=== PATIENT | female | born 1990 | race Caucasian/White ===

== ENCOUNTER 2017-11-08 04:43 | Day surgery (SDC) | payer BC ==
[2017-11-07 16:30] VITALS: BMI 34.0
[2017-11-08] MEDS ORDERED: ePHEDrine SULFATE 50 MG/1 ML AMPULE ONE (07:41)
[2017-11-08] MEDS ORDERED: MIDAZOLAM HCL 2 MG/2 ML SINGLE DOSE VIAL ONE (07:42)
[2017-11-08] MEDS ORDERED: PROPOFOL 20 ML ONE (07:42)
[2017-11-08] MEDS ORDERED: ROCURONIUM BROMIDE 50 MG/5 ML VIAL ONE (07:42)
[2017-11-08] MEDS ORDERED: LIDOCAINE 1%/EPI 1:100000 (20 ML MULTI DOSE VIAL) ONE (07:59)
[2017-11-08] MEDS ORDERED: BUPIVACAINE HCL/PF 0.5% (5MG/ML) 10 ML VIAL ONE (07:59)
[2017-11-08] MEDS ORDERED: ceFAZolin SODIUM 1 GM VIAL IVPB ONE (08:24)
[2017-11-08] MEDS ORDERED: LIDOCAINE 1%/EPI 1:100000 (50 ML MULTI DOSE VIAL) INF ONE (08:25)
[2017-11-08] MEDS ORDERED: BUPIVACAINE HCL/PF (5 MG/ML) 30 ML VIAL IJ ONE (08:25)
[2017-11-08] MEDS ORDERED: ONDANSETRON 4 MG/2 ML VIAL IVPUSH PRN (08:41)
[2017-11-08] MEDS ORDERED: oxyCODONE HCL 5 MG TABLET PO PRN ×2 (08:41)
[2017-11-08] MEDS ORDERED: LACTATED RINGERS SOLUTION 1,000 ML IV SCH (08:45)
--- NOTE | 2017-11-08 08:59 | HP ---
Satellite [facility] - Chief Complaint Chief Complaint: left knee pain - Past Medical History Allergies/Adverse Reactions: Allergies Allergy/AdvReac Type Severity Reaction Status Date / Time Sulfa (Sulfonamide Allergy Severe Rash Verified 11/08/17 06:58 Antibiotics) [Sulfa(Sulfonamide Antibiotics)] sulfamethoxazole Allergy Verified 11/08/17 06:58 [From Bactrim] trimethoprim [From Bactrim] Allergy Verified 11/08/17 06:58 ...LMP: 03/10/13 ...LMP Comment: 10/2016 - Current Medications Current Medications: Home Medications Medication Instructions Recorded Clonazepam 0.5 mg PO PRN PRN 11/07/17 Escitalopram Oxalate [Lexapro -] 20 mg PO DAILY 11/07/17 Gabapentin 600 mg PO HS 11/07/17 Ibuprofen [Motrin Ib] 200 mg PO PRN PRN 11/07/17 Satellite Physical Exam - Physical Examination Vital Signs: Vital Signs Period Temp Pulse Resp BP Sys/Valle Pulse Ox Last 24 Hr 98.4 F 85 16 133/82 99 General Appearance: Well Nourished, Well Developed, Alert & Oriented x3 ENT: Clear Lung: Normal air movement Heart: Regular rate & rhythm Extremities: Other (left knee- + swelling, + ttp medially, decr rom, + mcmurrays , nvi MRI + mmt) Neurological: Intact, Alert, Oriented Satellite Impression/Plan - Impression/Plan Impression: left knee internal derangement Operative Procedure: left knee arthroscopy Date to be Performed: 11/08/17
--- NOTE | 2017-11-08 09:00 | OP ---
Operative Note - Note: Operative Date: 11/08/17 ([facility]) Pre-Operative Diagnosis: left knee internal derangement Operation: left knee arthroscopy with MM repair Implants: arthrex meniscal repair kit- 4 Post-Operative Diagnosis: Same as Pre-op Surgeon: Anish Banks Seed [employer] Laboratory Assistant: Jarocho Maldonado Anesthesiologist/MOLD MOVER: Ramin Fitzgerald Anesthesia: General, Local Specimens Removed: shavings Estimated Blood Loss (mls): 5 Operative Report Dictated: Yes
[2017-11-08 10:47] VITALS: TEMP 97.9
[2017-11-08 12:05] VITALS: BP 128/63; PULSE 97
--- NOTE | 2017-11-08 12:18 | OP ---
DATE OF OPERATION: 11/08/2017 PREOPERATIVE DIAGNOSIS: Left medial meniscus tear. POSTOPERATIVE DIAGNOSIS: Left medial meniscus tear. PROCEDURE: Left knee arthroscopy with medial meniscus repair. SURGICAL ATTENDING: Abdelrahman Guzman MD DESK EDITOR: HAY Phan and Anish Banks MD ANESTHESIA: General with LMA. CLOSURE: Three meniscal cinches for the meniscus and 3-0 nylon for skin. ESTIMATED BLOOD LOSS: Negligible. COMPLICATIONS: None. CONDITION: To recovery in stable condition. DESCRIPTION OF OPERATIVE PROCEDURE: The patient taken to the operating room on November 08, 2017. General anesthesia with LMA was administered by the anesthesiologist. IV Kefzol was administered prophylactically prior to the case. The left lower extremity was prepped and draped in the usual sterile fashion. The medial and lateral infrapatellar portal sites were infiltrated with 1% xylocaine with epinephrine. The portals were then made with a 15-blade for blunt trocar. The arthroscopic trocar was placed in the inferolateral portal up through suprapatellar pouch. The knee was infiltrated then with a cocktail of 10 mL of 1% xylocaine, 10 mL of 0.5% Marcaine, and 20 mL of arthroscopic saline. The anesthetic was allowed to sit in the knee for a 2 minutes, then the procedure was performed. The pouch was visualized to be clean. The medial and lateral gutters were visualized to be clean. The undersurfaces of the patella and trochlea were visualized to be intact. With valgus stress on the knee, the medial compartment was entered, and medial meniscus was found to have a peripheral tear in the red zone extending from the posterior horn to the mid-substance region. It was displacing into the middle of the knee. The anterior half of the meniscus was completely intact. The medial femoral condyle was run and found to be intact as was the medial tibial plateau. At 90 degrees, the ACL was visualized and probed and found to be intact. In the figure-of-4 position, the lateral compartment was entered. The lateral meniscus was visualized and found to be intact. The lateral femoral condyle was found to be intact, as well as the lateral tibial plateau. Our attention was directed back to the medial meniscus to fix the meniscus. The synovium around was stimulated with the shaver to some bleeding surface. The Meniscal Cinch from [employer] was used to fix the meniscus. Three cinches were deployed, 1 most posteriorly, 1 more anteriorly, and 1 in between, fixating the meniscus back to the periphery. Each of the sutures were cut snug with the meniscus. Probing of the meniscus following the deployment of three cinches showed excellent stability of the repair. Range of motion of the knee revealed good stability with no displacement of the meniscus into the knee joint. The remaining meniscus was trephinated by using the needle from the Cinch. The water pressure in the knee was allowed to go down so we could better likely visualize bleeding surface in and around the meniscus. Trocars were removed after 20 mL of 0.5% Marcaine was infused into the knee for postoperative analgesia. The portals were closed with 3-0 nylon. Sterile pressure dressing followed by a knee immobilizer was applied. The patient awakened from anesthesia and transferred to recovery in stable condition with no complication. ESTIMATED BLOOD LOSS: Negligible. Alvaro [id number]
--- NOTE | 2017-11-09 15:40 | PATH ---
Surgical Pathology Report Patient Name: RODRIGUE NAIDU Med. Rec. #: [id number] /Age/Gender: 1990 (Age: 27) / F Account: [id number] Location: [facility] SURGICAL Taken: 11/08/2017 Received: 11/08/2017 Reported: 11/09/2017 Physicians: Abdelrahman Guzman M.D. Specimen(s) Received LEFT KNEE SHAVINGS Clinical History Left medial meniscal tear Final Diagnosis KNEE SHAVINGS, LEFT, ARTHROSCOPY AND MEDIAL MENISCAL REPAIR: FRAGMENTS OF CARTILAGE, DENSE FIBROCONNECTIVE TISSUE, ADIPOSE TISSUE, AND SYNOVIUM. Electronically Signed Kathrin Pisano M.D. Gross Description Received in formalin, labeled "left knee shavings," is a 3.0 x 2.3 x 0.3 cm. aggregate of ron-yellow soft tissue fragments. A policy services representative portion is submitted in one cassette. /11/08/201711/08/2017
== END 2017-11-08 12:03 | disposition home or self-care (01) ==
LOC: JASU-SURG 04:43
PROVIDERS: ATTEND Orthopaedic Surgery
PROC: 0SBD4ZZ Excision of Left Knee Joint, Percutaneous Endoscopic Approach (ICD-10-PCS; principal; 2017-11-08 08:00)
DX: S83.222A Peripheral tear of medial meniscus, current injury, left knee, initial encounter (principal); X58.XXXA Exposure to other specified factors, initial encounter; Y93.9 Activity, unspecified; Y92.9 Unspecified place or not applicable; Y99.9 Unspecified external cause status
CPT/HCPCS: 84703; 88304-TC; 94760

== ENCOUNTER 2017-12-15 21:43 | Emergency (ER) | payer BC ==
[2017-12-15 21:49] VITALS: BP 148/76; PULSE 87; TEMP 98; BMI 35.9
--- NOTE | 2017-12-15 22:28 | PDOC ---
History of Present Illness - General Chief Complaint: Pain Stated Complaint: ABDOMINAL CRAMPING Time Seen by Provider: 12/15/17 22:22 History Source: Patient Exam Limitations: Clinical Condition - History of Present Illness Initial Comments: 12/15/17 22:26 Patient with no sig Past medical history present with complain of cramping lower to no pain and feels she might be . Patient reported she didn't home test 4 times and had 2 positive and 2 negatives. Patient reports she had her IUD removed 3 weeks ago so she can get . Denies any other symptoms Timing/Duration: other (3 days) Past History - Past Medical History Allergies/Adverse Reactions: Allergies Allergy/AdvReac Type Severity Reaction Status Date / Time Sulfa (Sulfonamide Allergy Severe Rash Verified 12/15/17 21:50 Antibiotics) [Sulfa(Sulfonamide Antibiotics)] sulfamethoxazole Allergy Verified 12/15/17 21:50 [From Bactrim] trimethoprim [From Bactrim] Allergy Verified 12/15/17 21:50 Home Medications: Ambulatory Orders Clonazepam 0.5 mg PO PRN PRN 11/07/17 Escitalopram Oxalate [Lexapro -] 20 mg PO DAILY 11/07/17 Gabapentin 600 mg PO HS 11/07/17 Ibuprofen [Motrin Ib] 200 mg PO PRN PRN 11/07/17 Oxycodone HCl/Acetaminophen [Percocet 5-325 mg Tablet] 1 - 2 tab PO Q6H #30 tab MDD 6 11/08/17 Anemia: Yes ( A CHILD) Asthma: No Cancer: No Cardiac Disorders: No CVA: No COPD: No CHF: No Dementia: No Diabetes: No GI Disorders: No Disorders: No HTN: No Hypercholesterolemia: No Liver Disease: No Psychiatric Problems: Yes (ANXIETY, DEPRESSION) Seizures: No Thyroid Disease: No - Surgical History Abdominal Surgery: No Appendectomy: No Cardiac Surgery: No Cholecystectomy: No Lung Surgery: No Neurologic Surgery: No Orthopedic Surgery: No - Reproductive History (#): 1 Para: 0 Therapeutic (s) & number: No Spontaneous : 0 - Immunization History Immunization Up to Date: Yes - Suicide/Smoking/Psychosocial Hx Smoking Status: Yes Smoking History: Current some day smoker Have you smoked in the past 12 months: No Number of Cigarettes Smoked Daily: 3 Information on smoking cessation initiated: No 'Breaking Loose' booklet given: 11/07/17 Hx Alcohol Use: Yes (occasion) Drug/Substance Use Hx: No Substance Use Type: Alcohol Hx Substance Use Treatment: No Review of Systems - Review of Systems Able to Perform ROS?: Yes Is the patient limited German proficient: No Constitutional: No: Chills, Fever Respiratory: No: Cough, Orthopnea, Shortness of Breath, SOB with Exertion, SOB at Rest, Stridor, Wheezing, Productive cough, Hemoptysis, Other Cardiac (ROS): No: Chest Pain, Edema, Irregular Heart Rate, Lightheadedness, Palpitations, Syncope, Chest Tightness, Other ABD/GI: Yes: Abdominal cramping. No: Nausea, Vomiting : No: Burning, Hematuria All Other Systems: Reviewed and Negative *Physical Exam - Vital Signs Last Vital Signs Temp Pulse Resp BP Pulse Ox 98 F 87 18 148/76 98 12/15/17 21:45 12/15/17 21:45 12/15/17 21:45 12/15/17 21:45 12/15/17 21:45 - Physical Exam Comments: 12/15/17 22:28 GENERAL: Well developed, well nourished. Awake and alert. No acute distress. HEENT: Normocephalic, atraumatic. PERRLA, EOMI. No conjunctival pallor. Sclera are non- icteric. Moist mucous membranes. Oropharynx is clear. NECK: Supple. Full ROM. No JVD. Carotid pulses 2+ and symmetric, without bruits. No thyromegaly. No lymphadenopathy. CARDIOVASCULAR: Regular rate and rhythm. No murmurs, rubs, or gallops. Distal pulses are 2+ and symmetric. PULMONARY: No evidence of respiratory distress. Lungs clear to auscultation bilaterally. No wheezing, rales or rhonchi. ABDOMINAL: Soft. Non-tender. Non-distended. No rebound or guarding. No organomegaly. Normoactive bowel sounds. MUSCULOSKELETAL Normal range of motion at all joints. No bony deformities or tenderness. No CVA tenderness. EXTREMITIES: No cyanosis. No clubbing. No edema. No calf tenderness. SKIN: Warm and dry. Normal capillary refill. No rashes. No jaundice. NEUROLOGICAL: Alert, awake, appropriate. Cranial nerves 2-12 intact. No deficits to light touch and temperature in face, upper extremities and lower extremities. No motor deficits in the in face, upper extremities and lower extremities. Normoreflexic in the upper and lower extremities. Normal speech. Toes are down- going bilaterally. Gait is normal without ataxia. PSYCHIATRIC: Cooperative. Good eye contact. Appropriate mood and affect. General Appearance: Yes: Nourished, Appropriately Dressed. No: Apparent Distress Medical Decision Making - Medical Decision Making 12/15/17 22:48 Patient with no significant past medical history present with complain of intermittent cramping lower abdominal pain for 2 days now with no other symptoms. Patient feels she might be as she had unprotected sex and removed her IUD several weeks ago. Urine hCG and beta hCG sent. 12/15/17 22:53 beta hcg negative *DC/Admit/Observation/Transfer Diagnosis at time of Disposition: Pelvic pain, Right ovarian cyst - Discharge Dispostion Disposition: HOME Condition at time of disposition: Stable Decision to Admit order: No - Referrals Referrals: Jose Raul Goldsmith MD [Primary Care Provider] - - Patient Instructions Printed Discharge Instructions: DI for Ovarian Cyst Additional Instructions: you may take ibuprofen every 6 hours as needed for pain follow up with your claim adjuster as soon as possible, - Post Discharge Activity Forms/Work/School Notes: Back to Work
--- NOTE | 2017-12-15 22:53 | PDOC ---
*Physical Exam - Vital Signs Last Vital Signs Temp Pulse Resp BP Pulse Ox 98 F 87 18 148/76 98 12/15/17 21:45 12/15/17 21:45 12/15/17 21:45 12/15/17 21:45 12/15/17 21:45 - Physical Exam General Appearance: Yes: Appropriately Dressed Female Pelvic Exam: positive: normal external exam, cervical os closed, discharge, other (white vaginal discharge, + suprapubic tenderness). negative: CMT Gastrointestinal/Abdominal: positive: Normal Bowel Sounds, Soft Musculoskeletal: positive: Normal Inspection. negative: CVA Tenderness Extremity: positive: Normal Capillary Refill, Normal Inspection, Normal Range of Motion Integumentary: positive: Normal Color, Dry, Warm ED Treatment Course - ADDITIONAL ORDERS Additional order review: Laboratory Results 12/15/17 22:38 Urine HCG, Qual Negative Medical Decision Making - Medical Decision Making 12/15/17 23:35 patient reports that she has been having pelvic pain to thr right side for 2 days. vaginal bleeding 1 week ago after IUD was removed. today with 2 positive home . patient has a history of PID and chlamydia. 12/16/17 00:42 TVUS: No ovarian torsion. Color flow with appropriate arterial and venous waveforms. 1.7 cm dominant follicle right ovary. No free fluid. Normal uterus. Endometrial stripe complex 3 mm thick. Unremarkable visualized portion of bladder. *DC/Admit/Observation/Transfer Diagnosis at time of Disposition: Pelvic pain, Right ovarian cyst - Discharge Dispostion Disposition: HOME Condition at time of disposition: Stable - Referrals Referrals: Jose Raul Goldsmith MD [Primary Care Provider] - - Patient Instructions Printed Discharge Instructions: DI for Ovarian Cyst Additional Instructions: you may take ibuprofen every 6 hours as needed for pain follow up with your rn anesthesiology as soon as possible, - Post Discharge Activity Forms/Work/School Notes: Back to Work
[2017-12-15 23:36] LABS: URINE APPEARANCE CLEAR; URINE BILIRUBIN NEGATIVE (<2.0 mg/dL); URINE COLOR LTYELLOW; URINE GLUCOSE (UA) NEGATIVE (NEGATIVE); URINE KETONE NEGATIVE (NEGATIVE); URINE LEUK ESTERASE TRACE (NEGATIVE); URINE NITRITE NEGATIVE (NEGATIVE); URINE PROTEIN NEGATIVE (NEGATIVE); URINE UROBILINOGEN NEGATIVE mg/dL (0.2-1.0)
[2017-12-15 23:42] LABS: EPI CELLS RARE /HPF (FEW); URINE BACTERIA FEW /hpf (NONE SEEN); URINE MUCUS RARE
== END 2017-12-16 01:21 | disposition home or self-care (01) ==
LOC: JER 21:43 → JERFT 21:43 → JER 12-16 01:21
DX: N83.201 Unspecified ovarian cyst, right side (principal); F41.8 Other specified anxiety disorders; F17.210 Nicotine dependence, cigarettes, uncomplicated; Z86.19 Personal history of other infectious and parasitic diseases
CPT/HCPCS: 36415; 76830-TC; 81003; 81015; 84702; 84703; 87110; 87491; 87591; 99281-25

== ENCOUNTER 2018-03-23 18:51 | Emergency (ER) | payer BC ==
--- NOTE | 2018-03-23 19:03 | PDOC ---
Rapid Medical Evaluation Medical Evaluation: Allergies Allergy/AdvReac Type Severity Reaction Status Date / Time Sulfa (Sulfonamide Allergy Severe Rash Verified 12/15/17 21:50 Antibiotics) [Sulfa(Sulfonamide Antibiotics)] sulfamethoxazole Allergy Verified 12/15/17 21:50 [From Bactrim] trimethoprim [From Bactrim] Allergy Verified 12/15/17 21:50 03/23/18 18:59 pt states vaginal spotting started 3days ago positive test at home . left lower quadrant pain. history of depression, anxiety. LMP 02/16/18 03/23/18 19:04 Discharge Disposition - Referrals Referrals: Jose Raul Goldsmith MD [Primary Care Provider] - - Patient Instructions - Post Discharge Activity
[2018-03-23 19:15] LABS: HEMATOCRIT 37.9 % (32.4-45.2); HEMOGLOBIN 13.3 GM/dL (10.7-15.3); MCH 31.1 pg (25.7-33.7); MCHC 35.1 g/dl (32.0-36.0); MEAN CELL VOLUME 88.5 fl (80-96); MEAN PLT VOLUME 8.2 fl (7.5-11.1); PLATELET COUNT 390 K/MM3 (134-434); RBC 4.28 M/mm3 (3.60-5.2); RDW 13.3 % (11.6-15.6); WHITE BLOOD COUNT 9.1 K/mm3 (4.0-10.0)
[2018-03-23 19:36] LABS: HCG,QUALITATIVE URINE Positive
[2018-03-23 19:37] LABS: URINE APPEARANCE CLEAR; URINE BILIRUBIN NEGATIVE (<2.0 mg/dL); URINE COLOR STRAW; URINE GLUCOSE (UA) NEGATIVE (NEGATIVE); URINE KETONE NEGATIVE (NEGATIVE); URINE LEUK ESTERASE 1+ (NEGATIVE); URINE NITRITE NEGATIVE (NEGATIVE); URINE PROTEIN NEGATIVE (NEGATIVE); URINE UROBILINOGEN NEGATIVE mg/dL (0.2-1.0)
--- NOTE | 2018-03-23 19:43 | PDOC ---
History of Present Illness - General Chief Complaint: Pain Stated Complaint: ,Possible WITH ABD PAIN Time Seen by Provider: 03/23/18 19:19 History Source: Patient Exam Limitations: No Limitations - History of Present Illness Initial Comments: 03/23/18 19:34 Patient is a 27 year old female currently 4 weeks 3 days with ( according to LMP on 02/20/18) who presents today for minor vaginal spotting she noticed today associated with left groin pain. She is unable to explain the pain but states it's intermittent but not severe. No alleviating or exacerbating factors. Patient states when she noticed the spotting she took a test 4 times today, all with positive results. Patient does admit to feeling more fatigued and nauseated associated with urinary frequency. Patient reports this was a planned and has not seen an OBGYN yet. Patient denies any recent trauma, falls or injury. Otherwise, denies any vaginal discharge, dysuria, urgency, hematuria, melena, hematochezia, hematemesis, fever, chills, vomiting, chest pain, palpitations, shortness of breath, dizziness, loss of consciousness Currently denies taking any pills. States she does have a history of Pelvic inflammatory disease diagnosed and treated 5 years ago Follows her OBGYN, Dr. Dodson, with last Pap smear and STD testing this past November. 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 [employer] Family Hx: Father- from colon cancer OBGYN Hx: LMP 02/20/18 Age of Menarche: 11 Menses every 28 days lasting 3-4 days Past History - Past Medical History Allergies/Adverse Reactions: Allergies Allergy/AdvReac Type Severity Reaction Status Date / Time Sulfa (Sulfonamide Allergy Severe Rash Verified 03/23/18 19:00 Antibiotics) [Sulfa(Sulfonamide Antibiotics)] sulfamethoxazole Allergy Verified 03/23/18 19:00 [From Bactrim] trimethoprim [From Bactrim] Allergy Verified 03/23/18 19:00 Home Medications: Ambulatory Orders Clonazepam 0.5 mg PO PRN PRN 11/07/17 Escitalopram Oxalate [Lexapro -] 20 mg PO DAILY 11/07/17 Anemia: Yes ( A CHILD) Asthma: No Cancer: No Cardiac Disorders: No CVA: No COPD: No CHF: No Dementia: No Diabetes: No GI Disorders: No Disorders: No HTN: No Hypercholesterolemia: No Liver Disease: No Psychiatric Problems: Yes (ANXIETY, DEPRESSION) Seizures: No Thyroid Disease: No - Surgical History Abdominal Surgery: No Appendectomy: No Cardiac Surgery: No Cholecystectomy: No Lung Surgery: No Neurologic Surgery: No Orthopedic Surgery: No - Reproductive History LMP comment: 02/20/2018 LMP Normal: Yes Is Patient Now?: Yes (#): 2 Para: 0 PID: Yes Therapeutic (s) & number: Yes (1) Spontaneous : 0 - Immunization History Immunization Up to Date: Yes - Suicide/Smoking/Psychosocial Hx Smoking Status: Yes Smoking History: Current some day smoker Have you smoked in the past 12 months: No Number of Cigarettes Smoked Daily: 3 'Breaking Loose' booklet given: 11/07/17 Hx Alcohol Use: Yes (occasion) Drug/Substance Use Hx: No Substance Use Type: Alcohol Hx Substance Use Treatment: No Review of Systems - Review of Systems Able to Perform ROS?: Yes Constitutional: No: Chills, Diaphoresis, Fever HEENTM: No: Throat Pain, Difficulty Swallowing Respiratory: No: Cough, Shortness of Breath Cardiac (ROS): No: Chest Pain, Edema, Palpitations, Syncope, Chest Tightness ABD/GI: Yes: Nausea. No: Constipated, Diarrhea, Rectal Bleeding, Vomiting : Yes: Frequency. No: Burning, Dysuria, Discharge, Flank Pain, Hematuria, Incontinence, Urgency Musculoskeletal: No: Back Pain, Joint Pain Integumentary: No: Bruising, Erythema Neurological: No: Headache, Numbness, Tingling, Tremors *Physical Exam - Physical Exam General Appearance: Yes: Other (Awake, alert, oriented x3, in no acute distress ) HEENT: positive: EOMI, BROOKS, Normal ENT Inspection, Symmetrical, Pharynx Normal. negative: Tonsillar Exudate, Tonsillar Erythema, Rhinorrhea, Sinus Tenderness Neck: negative: Decreased range of motion, Lymphadenopathy (R), Lymphadenopathy (L) Respiratory/Chest: positive: Lungs Clear, Normal Breath Sounds. negative: Crackles, Rales, Rhonchi, Wheezing Cardiovascular: positive: Regular Rhythm, Regular Rate, S1, S2. negative: Edema , JVD, Murmur Gastrointestinal/Abdominal: positive: Other (Soft, nontender, nondistended, normoactive bowel sounds, no rebound or guarding ) Musculoskeletal: positive: Normal Inspection. negative: CVA Tenderness, CVA Tenderness (R), CVA Tenderness (L) Extremity: positive: Normal Capillary Refill, Normal Inspection, Normal Range of Motion. 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 Differential Diagnosis includes but not limited to UTI, Nephrolithiasis, ovarian cyst, ovarian torsion, ectopic . -CBC, CMP, Beta qual and quant -U/A, Urine culture -Pelvic exam -Transvaginal U/S -G/C 03/23/18 21:17 -Labs unremarkable and Urinalysis unremarkable -Pelvic exam revealed closed OS with no bleeding or adnexal tenderness -Vaginal US final read pending and once read is final will likely discharge 03/23/18 21:36 -U/S revealed no IUG or gestational sac- possibly early vs ectopic vs spontaneous -Will need to return in two days for repeat B-HCG levels and repeat Transvaginal U/S *DC/Admit/Observation/Transfer Diagnosis at time of Disposition: Qualifiers: Weeks of gestation: less than 8 weeks Qualified Code(s): Z3A.01 - Less than 8 weeks gestation of - Discharge Dispostion Disposition: HOME Condition at time of disposition: Stable Decision to Admit order: No - Referrals Referrals: Jose Raul Goldsmith MD [Primary Care Provider] - Terra Dodson DO [Staff Physician] - - Patient Instructions Additional Instructions: -You were seen here for positive test and vaginal bleeding. Labs work here revealed that you are -Return in two days to have blood work rechecked and possibly another U/S (03/25) -Please begin taking pills -Avoid any heavy lifting -Please follow up with your OBGYN within the next 1 week -If you have any worsening symptoms, please return to the emergency department immediately. - Post Discharge Activity
[2018-03-23 19:45] LABS: EPI CELLS RARE /HPF (FEW); URINE BACTERIA RARE /hpf (NONE SEEN)
--- NOTE | 2018-03-23 19:50 | PDOC ---
Attending Attestation - HPI HPI: 03/23/18 19:53 The patient is a 4 weeks 3 days 27 year old female , with no significant PMH, who presents to the emergency department with vaginal spotting earlier today. The patient also endorses intermittent left groin pain, nausea, fatigue and urinary frequency. 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 The patient denies taking pills. Denies any recent falls or trauma. Denies any recent abdominal pain or cramping. The patient denies chest pain, shortness of breath, headache and dizziness. Denies fever, chills, vomit, diarrhea and constipation. Denies vaginal discharge, dysuria, urgency and hematuria. Allergies: sulfa (sulfonamide antibiotics), sulfamethoxazole, trimethoprim Documentation prepared by Pepe Sampson, acting as director medical science for Gricelda Velazco MD. <Pepe Sampson - Last Filed: 03/23/18 19:53> - Resident Resident Name: Cheyanne Tomlinson - ED Attending Attestation I have performed the following: I have examined & evaluated the patient, The case was reviewed & discussed with the resident, I agree w/resident's findings & plan, Exceptions are as noted - Physicial Exam PE: GENERAL: Awake, alert, and fully oriented, in no acute distress HEAD: No signs of trauma EYES: PERRLA, EOMI, sclera anicteric, conjunctiva clear ENT: Auricles normal inspection, hearing grossly normal, nares patent, oropharynx clear without exudates. Moist mucosa NECK: Normal ROM, supple, no lymphadenopathy, JVD, or masses LUNGS: Breath sounds equal, clear to auscultation bilaterally. No wheezes, and no crackles HEART: Regular rate and rhythm, normal S1 and S2, no murmurs, rubs or gallops ABDOMEN: Soft, nontender, normoactive bowel sounds. No guarding, no rebound. No masses EXTREMITIES: Normal range of motion, no edema. No clubbing or cyanosis. No cords, erythema, or tenderness NEUROLOGICAL: Cranial nerves II through XII grossly intact. Normal speech, normal gait SKIN: Warm, Dry, normal turgor, no rashes or lesions noted. - Medical Decision Making B-HCG is still very low, so either this is spotting with very early or there is an impending miscarriage. Will send for sono today (low likelihood of seeing IUP based on B-HCG results). Return in 48 hrs for repeat B-HCG to see if trending up or down. <Gricelda Velazco - Last Filed: 03/23/18 20:50>
[2018-03-23 19:57] LABS: ALBUMIN 3.7 g/dl (3.4-5.0); ALK PHOS 72 U/L (45-117); ANION GAP 7 MMOL/L (8-16); BILIRUBIN,TOTAL 0.2 mg/dL (0.2-1); BLOOD UREA NITROGEN 12 mg/dL (7-18); CALCIUM 8.3 mg/dL (8.5-10.1); CHLORIDE 107 mmol/L (98-107); CO2 24 mmol/L (21-32); CREATININE 0.7 mg/dL (0.55-1.3); GLUCOSE,RANDOM 97 mg/dL (74-106); POTASSIUM 3.6 mmol/L (3.5-5.1); SGOT/AST 10 U/L (15-37); SGPT/ALT 16 U/L (13-61); SODIUM 138 mmol/L (136-145); TOT PROT 6.9 g/dl (6.4-8.2)
[2018-03-23 21:54] VITALS: BP 124/78; PULSE 78; TEMP 97.9; BMI 56.2
== END 2018-03-23 21:54 | disposition home or self-care (01) ==
LOC: JER 18:51
DX: O26.891 Other specified pregnancy related conditions, first trimester (principal); O26.851 Spotting complicating pregnancy, first trimester; Z3A.01 Less than 8 weeks gestation of pregnancy
CPT/HCPCS: 36415; 76817-TC; 80053; 81003; 81015; 84702; 84703; 85027; 86850; 86900; 86901; 87491; 87591; 99282-25

== ENCOUNTER 2018-03-25 16:48 | Emergency (ER) | payer BC ==
[2018-03-25 17:10] VITALS: BP 129/78; TEMP 98.8; BMI 35.9
--- NOTE | 2018-03-25 18:11 | PDOC ---
History of Present Illness - General History Source: Patient Exam Limitations: No Limitations - History of Present Illness Initial Comments: 03/25/18 19:23 Ericka Santillan is 27-year-old female, current 4.5 weeks , , with past medical history of Anxiety (on clonazepam), depression, and sleep apnea (getting worse, not on CPAP) and hx of PID (about 5 years ago) presents to the emergency department with pelvic pain for the past 5 days. The patient was seen at the ER on 03/23/2018 for vaginal spotting and L. groin pain, during the visit patients beta HCG was in the 200s, with u/s revealed no IUG or gestational sac. The patients UA was positive for bacteria, but no abx given. The patient presents today with mid-pelvic and LLQ abdominal pain since Monday. The patient reports initially the pain was crampy in quality that progressed into pulling pain on . Denies trauma. The patient reports additional concern URI symptoms since yesterday, symptoms include stuffy nose, productive cough with clear phlegm and a headache. The patient reports sick contact with her who is recovering from the cold and states she has sick contact at work. The patient reports she works for the [employer]. The patient reports taking sinus Tylenol, with very mild relief. Reports having one elective in the past, no hx of ectopic , Denies hx of asthma. Denies dysuria hematuria, frequency or urgency to urinate. The patient reports shes been having nausea for the past 2 weeks which is similar to prior . The patient denies having vaginal pain, itching or odorous discharge. LMP on 02/20/18 Allergies: Sulfa, sulfamethoxazole and trimethoprim Social history: Daily 3 cigarettes (stopped using after finding out she was ), social alcohol user (stopped after finding out she was ) No drug use reported. PCP: Jose Raul Goldsmith MD. <Lizbeth Wilson - Last Filed: 03/25/18 19:23> - General History Source: Patient Exam Limitations: No Limitations <Gege Robbins - Last Filed: 03/25/18 20:23> - General Chief Complaint: Vaginal Bleeding Stated Complaint: VAGINAL BLEEDING PREG @ 4WKS Time Seen by Provider: 03/25/18 18:00 Past History <Lizbeth Wilson - Last Filed: 03/25/18 19:23> - Past Medical History Anemia: Yes ( A CHILD) Asthma: No Cancer: No Cardiac Disorders: No CVA: No COPD: No CHF: No Dementia: No Diabetes: No GI Disorders: No Disorders: No HTN: No Hypercholesterolemia: No Liver Disease: No Psychiatric Problems: Yes (ANXIETY, DEPRESSION) Seizures: No Thyroid Disease: No - Surgical History Abdominal Surgery: No Appendectomy: No Cardiac Surgery: No Cholecystectomy: No Lung Surgery: No Neurologic Surgery: No Orthopedic Surgery: No - Reproductive History (#): 2 Para: 0 PID: Yes Therapeutic (s) & number: Yes (1) Spontaneous : 0 - Immunization History Immunization Up to Date: Yes - Suicide/Smoking/Psychosocial Hx Smoking Status: Yes Smoking History: Current some day smoker Have you smoked in the past 12 months: No Number of Cigarettes Smoked Daily: 3 Information on smoking cessation initiated: Yes 'Breaking Loose' booklet given: 11/07/17 Hx Alcohol Use: No Drug/Substance Use Hx: No Substance Use Type: Alcohol Hx Substance Use Treatment: No <Gege Robbins - Last Filed: 03/25/18 20:23> - Past Medical History Allergies/Adverse Reactions: Allergies Allergy/AdvReac Type Severity Reaction Status Date / Time Sulfa (Sulfonamide Allergy Severe Rash Verified 03/25/18 17:05 Antibiotics) [Sulfa(Sulfonamide Antibiotics)] sulfamethoxazole Allergy Verified 03/25/18 17:05 [From Bactrim] trimethoprim [From Bactrim] Allergy Verified 03/25/18 17:05 Home Medications: Ambulatory Orders Clonazepam 0.5 mg PO PRN PRN 11/07/17 Escitalopram Oxalate [Lexapro -] 20 mg PO DAILY 11/07/17 Cephalexin Monohydrate [Keflex -] 500 mg PO BID 7 Days #14 capsule 03/25/18 Review of Systems - Review of Systems Able to Perform ROS?: Yes Comments:: 03/25/18 19:06 Constitutional: no fevers or chills. HEENT: +headache, congestion CVS: no cp or syncope. Resp: no sob. +cough Gastrointestinal: +pelvic pain. +nausea. No other abdominal pain, vomiting. Genitourinary: no urinary sx, hematuria. No vaginal spotting. No VB. no odor. MUSCULOSKELETAL: No joint pain and swelling. No neck or back pain. SKIN: no redness or skin changes, no discharge, no rash. No wounds. Hematologic: no easy bruising/bleeding. NEUROLOGIC: +headache Allergic/Immunologic: no allergies All other systems reviewed and negative, or as documented in HPI. <Lizbeth Wilson - Last Filed: 03/25/18 19:23> *Physical Exam - Vital Signs Last Vital Signs Temp Pulse Resp BP Pulse Ox 98.8 F 108 H 18 129/78 98 03/25/18 17:00 03/25/18 17:00 03/25/18 17:00 03/25/18 17:00 03/25/18 17:00 - Physical Exam Comments: 03/25/18 19:06 General: Well appearing, awake and alert, NAD. HEENT: NCAT, PERRL, EOMI, clear conjunctiva, anicteric, moist mucus membranes, clear oropharynx, no oral lesions.. Neck: neck supple, FROM Resp: CTAB, normal and even respirations, no respiratory distress CVS: RRR, no murmurs, 2+ peripheral pulses throughout, no peripheral edema Abdomen: +L. Pelvic and suprapubic pain with tenderness. soft, ND, no rebound or guarding. No CVAT. Female : normal external genitalia, no lesions, clear vaginal vault, physiologic vaginal discharge. No odor. no CMT, +right adnexal tenderness. Smooth and pink cervix, closed. Back: nontender, normal inspection and ROM MSK: no edema, CHRISTIANSON x4, ROM intact. No clubbing or cyanosis. normal bulk and tone. Extremities: no calf tenderness Neuro: alert, oriented appropriately; no focal neurologic deficits Skin: warm and well perfused, cap refill <2 sec, normal color <Lizbeth Wilson - Last Filed: 03/25/18 19:23> - Vital Signs Last Vital Signs Temp Pulse Resp BP Pulse Ox 98.8 F 108 H 18 129/78 98 03/25/18 17:00 03/25/18 17:00 18 17:00 03/25/18 17:00 03/25/18 17:00 <Gege Robbins - Last Filed: 03/25/18 20:23> Moderate Sedation - Procedure Monitoring Vital Signs: Procedure Monitoring Vital Signs Temperature 98.8 F 03/25/18 17:00 Pulse Rate 108 H 03/25/18 17:00 Respiratory Rate 18 03/25/18 17:00 Blood Pressure 129/78 03/25/18 17:00 O2 Sat by Pulse Oximetry (%) 98 03/25/18 17:00 <Lizbeth Wilson - Last Filed: 03/25/18 19:23> - Procedure Monitoring Vital Signs: Procedure Monitoring Vital Signs Temperature 98.8 F 03/25/18 17:00 Pulse Rate 108 H 03/25/18 17:00 Respiratory Rate 18 03/25/18 17:00 Blood Pressure 129/78 03/25/18 17:00 O2 Sat by Pulse Oximetry (%) 98 03/25/18 17:00 <Gege Robbins - Last Filed: 03/25/18 20:23> ED Treatment Course - LABORATORY CBC & Chemistry Diagram: 03/25/18 18:31 03/25/18 18:31 - ADDITIONAL ORDERS Additional order review: Laboratory Results 03/25/18 18:14 PT with INR 13.70 H INR 1.16 H <Lizbeth Wilson - Last Filed: 03/25/18 19:23> - LABORATORY CBC & Chemistry Diagram: 03/25/18 18:31 03/25/18 18:31 <Gege Robbins - Last Filed: 03/25/18 20:23> Medical Decision Making - Medical Decision Making 03/25/18 19:05 CLINICAL TRIAL MANAGER: Dr. Dodson .The patient reports she is scheduled for an appointment on . Last beta hcg on 03/23 200s, with U/S revealed no IUG or gestational sac- possibly early vs ectopic vs spontaneous Prior labs reviewed from 03/23. +UA with rare bacteria, no abx given at time, will rx keflex. prior txs with rh positive, no rhogam. repeat Beta hcg_600s, appropriately >doubled from 2 days ago. labs and lytes normal. coags normal TVUS with very early GS, 4 weeks 6 days, repeat in 1 week time appropriately. no pelvic FF, normal ovaries. reassurance provided. expectant management, early preg vs threatened influenza test_negative likelly URI, supportive care with warm water/tea, lemon and raza. tylenol PRN for nazario/analgesia. DC with OB followup, appt with Dr Dodson this week. repeat US then, establish care. vitamins. Keflex BID x 1 week for bacteruria of , ?UTI. urine cultures sent today , not sent the other day. pt verbalized understanding of instructions, bleeding precautions, worsening pain/syncope/back pain, ectopic precautions. DC in stable condition with partner. 03/25/18 19:39 03/25/18 20:03 03/25/18 20:22 <Gege Robbins - Last Filed: 03/25/18 20:23> *DC/Admit/Observation/Transfer - Attestations Scribe Attestion: 03/25/18 19:06 Documentation prepared by Lizbeth Wilson, acting as chief medical director for Gege Robbins MD. <Lizbeth Wilson - Last Filed: 03/25/18 19:23> - Discharge Dispostion Decision to Admit order: No - Attestations Physician Attestion: 03/25/18 19:35 I, Gege Robbins MD, attest that this document has been prepared under my direction and personally reviewed by me in its entirety. I further attest, that it accurately reflects all work, treatment, procedures and medical decision -making performed by me. <Gege Robbins - Last Filed: 03/25/18 20:23> Diagnosis at time of Disposition: Pelvic pain, Vaginal bleeding during , UTI in , Encounter for laboratory examination, URI (upper respiratory infection) - Discharge Dispostion Disposition: HOME Condition at time of disposition: Good - Prescriptions Prescriptions: Cephalexin Monohydrate [Keflex -] 500 mg PO BID 7 Days #14 capsule - Referrals Referrals: Terra Dodson DO [Staff Physician] - Jose Raul Goldsmith MD [Primary Care Provider] - Fletcher Jarquin MD [Staff Physician] - Pat Gayle MD [Staff Physician] - - Patient Instructions Printed Discharge Instructions: Diet, DI for Threatened , DI for Urinary Tract Infection (UTI), DI for Viral Upper Respiratory Infection -- Adult, DI for Vaginal Bleeding During , DI for Abdominal Pain -- Early Additional Instructions: Your laboratory / imaging results were normal, your beta hcg elevated appropriately from 200s to 600s, which is expected with . your ultrasound is provided, with very early gestational sac and 4 weeks 6 days , needs recheck in about 1 week. you also most likely have an upper respiratory tract infection, influenza test was sent and pending, will call with results. Follow up with your physician and consultants as instructed, take your medications as instructed including keflex twice a day for suspected Urinary tract infection in and bacteria present in the urine sample follow up on your urine cultures collected today. please follow up with Dr Dodson this week for your first trimester check up and evaluation and repeat Ultrasound, as it is still early vs miscarriage Return if worsening symptoms including fevers, headache, vomiting, vaginal bleeding, abdominal pain, chest pain, shortness of breath, syncope, dehydration , inability to take things by mouth/vomiting, altered mental status, or worsening concerning symptoms. your medications on discharge include_ side effects may include upset stomach, abdominal pain, vomiting, or diarrhea. do not drink alcohol with your medications. do not smoke in , take your prenatals. stay well hydrated and rest well. - Post Discharge Activity Forms/Work/School Notes: Back to Work
[2018-03-25 18:48] LABS: BASO % 1.2 % (0-2.0); EOS % 1.1 % (0-4.5); HEMATOCRIT 39.8 % (32.4-45.2); HEMOGLOBIN 13.3 GM/dL (10.7-15.3); LYMPH % 20.2 % (8-40); MCH 29.6 pg (25.7-33.7); MCHC 33.5 g/dl (32.0-36.0); MEAN CELL VOLUME 88.4 fl (80-96); MEAN PLT VOLUME 8.2 fl (7.5-11.1); MONO % 8.1 % (3.8-10.2); NEUT % 69.4 % (42.8-82.8); PLATELET COUNT 377 K/MM3 (134-434); RDW 12.8 % (11.6-15.6); WHITE BLOOD COUNT 11.8 K/mm3 (4.0-10.0)
[2018-03-25 18:55] LABS: URINE APPEARANCE CLEAR; URINE BILIRUBIN NEGATIVE (<2.0 mg/dL); URINE COLOR YELLOW; URINE GLUCOSE (UA) NEGATIVE (NEGATIVE); URINE KETONE TRACE (NEGATIVE); URINE LEUK ESTERASE NEGATIVE (NEGATIVE); URINE NITRITE NEGATIVE (NEGATIVE); URINE PROTEIN NEGATIVE (NEGATIVE)
[2018-03-25 19:00] LABS: INR 1.16 (0.83-1.09); PROTHROMBIN TIME (PATIENT) 13.7 SEC (9.7-13.0)
[2018-03-25 19:15] LABS: ALBUMIN 3.9 g/dl (3.4-5.0); ALK PHOS 76 U/L (45-117); ANION GAP 7 MMOL/L (8-16); BILIRUBIN,TOTAL 0.3 mg/dL (0.2-1); BLOOD UREA NITROGEN 10 mg/dL (7-18); CALCIUM 8.9 mg/dL (8.5-10.1); CHLORIDE 105 mmol/L (98-107); CO2 25 mmol/L (21-32); CREATININE 0.6 mg/dL (0.55-1.3); GLUCOSE,RANDOM 106 mg/dL (74-106); POTASSIUM 3.4 mmol/L (3.5-5.1); SGOT/AST 10 U/L (15-37); SGPT/ALT 15 U/L (13-61); SODIUM 137 mmol/L (136-145); TOT PROT 7.3 g/dl (6.4-8.2)
[2018-03-25 20:24] VITALS: PULSE 85
== END 2018-03-25 22:09 | disposition home or self-care (01) ==
LOC: JER 16:48
DX: O26.891 Other specified pregnancy related conditions, first trimester (principal); O23.41 Unspecified infection of urinary tract in pregnancy, first trimester; R10.2 Pelvic and perineal pain; O20.8 Other hemorrhage in early pregnancy; O98.511 Other viral diseases complicating pregnancy, first trimester; J06.9 Acute upper respiratory infection, unspecified; Z3A.01 Less than 8 weeks gestation of pregnancy
CPT/HCPCS: 36415; 76801-TC; 80053; 81003; 84702; 85025; 85610; 86850; 86900; 86901; 87077; 87086; 87804; 99283-25

== ENCOUNTER 2018-04-09 02:08 | Emergency (ER) | payer BC ==
[2018-04-09 02:49] VITALS: TEMP 98.6; BMI 34.5
[2018-04-09] MEDS ORDERED: FAMOTIDINE 20 MG/50 ML IVPB 20 MG/50 ML MG IVPB ONE ×2 (03:45→03:56)
[2018-04-09] MEDS ORDERED: ONDANSETRON 4 MG/2 ML VIAL IVPB ONE (03:45)
[2018-04-09] MEDS ORDERED: SODIUM CHLORIDE 0.9% 500 ML INFUS.BAG IV ONE (03:45)
[2018-04-09] MEDS ORDERED: ONDANSETRON 4 MG/2 ML VIAL ONE ×2 (03:56→06:10)
[2018-04-09 04:11] LABS: BASO % 0.5 % (0-2.0); EOS % 0.5 % (0-4.5); HEMATOCRIT 41.9 % (32.4-45.2); HEMOGLOBIN 14.4 GM/dL (10.7-15.3); MCH 30.3 pg (25.7-33.7); MCHC 34.4 g/dl (32.0-36.0); MEAN CELL VOLUME 88.2 fl (80-96); MEAN PLT VOLUME 8.9 fl (7.5-11.1); MONO % 5.4 % (3.8-10.2); NEUT % 83.6 % (42.8-82.8); PLATELET COUNT 402 K/MM3 (134-434); RBC 4.75 M/mm3 (3.60-5.2); RDW 13.1 % (11.6-15.6); WHITE BLOOD COUNT 10.4 K/mm3 (4.0-10.0)
[2018-04-09 04:39] LABS: ALK PHOS 72 U/L (45-117); ANION GAP 10 MMOL/L (8-16); BILIRUBIN,TOTAL 0.5 mg/dL (0.2-1); BLOOD UREA NITROGEN 9 mg/dL (7-18); CALCIUM 9.2 mg/dL (8.5-10.1); CHLORIDE 102 mmol/L (98-107); CO2 24 mmol/L (21-32); CREATININE 0.6 mg/dL (0.55-1.3); GLUCOSE,RANDOM 102 mg/dL (74-106); POTASSIUM 3.8 mmol/L (3.5-5.1); SGOT/AST 25 U/L (15-37); SGPT/ALT 20 U/L (13-61); SODIUM 136 mmol/L (136-145); TOT PROT 7.8 g/dl (6.4-8.2)
--- NOTE | 2018-04-09 04:50 | PDOC ---
History of Present Illness - General Chief Complaint: Nausea/Vomiting Stated Complaint: VOMITING/7 WKS Time Seen by Provider: 04/09/18 03:26 History Source: Patient Exam Limitations: No Limitations - History of Present Illness Initial Comments: 04/09/18 04:53 Patient is a 27-year-old female with history of sleep apnea, depression, anxiety complaining of nausea and vomiting 4 hours associated with generalized body ache which is 7/10. States she is 6 weeks 6 days she's been having cold symptoms 2 weeks. Flu test was neg 2 weeks ago. Currently intolerant of solid or liquid. Denies fever, chills, dysuria, vaginal bleeding. LMP 02/16/18. Was seen in the ED on 03/23/18 with no IUP seen on US but had GS and yolk sac on 03/25/18 at 4weeks and 6 days. PMD: Dr Goldsmith OBS: Dr. Dodson PMHX: as above PSOCHX: stopped smoking few weeks ago, neg etoh, neg drug ALL: sulfa GENERAL/CONSTITUTIONAL: [No fever or chills. No weakness. No weight change.] HEAD, EYES, EARS, NOSE AND THROAT: [No change in vision. No ear pain or discharge. No sore throat.] CARDIOVASCULAR: [No chest pain or shortness of breath.] RESPIRATORY: [No cough, wheezing, or hemoptysis.] GASTROINTESTINAL: [No nausea, vomiting, diarrhea or constipation. No rectal bleeding.] GENITOURINARY: [No dysuria, frequency, or change in urination.] MUSCULOSKELETAL: [No joint or muscle swelling or pain. No neck or back pain.] SKIN AND BREASTS: [No rash or easy bruising.] NEUROLOGIC: [No headache, vertigo, loss of consciousness, or loss of sensation.] PSYCHIATRIC: (+) depression or anxiety.] ENDOCRINE: [No increased thirst. No abnormal weight change.] HEMATOLOGIC/LYMPHATIC: [No anemia, easy bleeding, or history of blood clots.] ALLERGIC/IMMUNOLOGIC: [No hives or skin allergy. No latex allergy.] GENERAL: [The patient is awake, alert, and fully oriented, in mild distress.] HEAD: [Normal with no signs of trauma.] EYES: [Pupils equal, round and reactive to light, extraocular movements intact, sclera anicteric, conjunctiva clear.] ENT: [Ears normal, nares patent, oropharynx clear without exudates. Moist mucous membranes.] NECK: [Normal range of motion, supple without lymphadenopathy, JVD, or masses.] LUNGS: [Breath sounds equal, clear to auscultation bilaterally. No wheezes, and no crackles.] HEART: [Regular rate and rhythm, normal S1 and S2 without murmur, rub.] ABDOMEN: [Soft, (+) tenderness generalized abd, normoactive bowel sounds. No guarding, no rebound. No masses.] EXTREMITIES: [Normal range of motion, no edema. No clubbing or cyanosis. No cords, erythema, or tenderness.] NEUROLOGICAL: [Cranial nerves II through XII grossly intact. Normal speech, normal gait.] PSYCH: [Normal mood, normal affect.] SKIN: [Warm, Dry, normal turgor, no rashes or lesions noted.] Past History - Past Medical History Allergies/Adverse Reactions: Allergies Allergy/AdvReac Type Severity Reaction Status Date / Time Sulfa (Sulfonamide Allergy Severe Rash Verified 04/09/18 02:49 Antibiotics) [Sulfa(Sulfonamide Antibiotics)] sulfamethoxazole Allergy Verified 04/09/18 02:49 [From Bactrim] trimethoprim [From Bactrim] Allergy Verified 04/09/18 02:49 Home Medications: Ambulatory Orders Clonazepam 0.5 mg PO PRN PRN 11/07/17 Escitalopram Oxalate [Lexapro -] 20 mg PO DAILY 11/07/17 Cephalexin Monohydrate [Keflex -] 500 mg PO BID 7 Days #14 capsule 03/25/18 Anemia: Yes ( A CHILD) Asthma: No Cancer: No Cardiac Disorders: No CVA: No COPD: No CHF: No Dementia: No Diabetes: No GI Disorders: No Disorders: No HTN: No Hypercholesterolemia: No Liver Disease: No Psychiatric Problems: Yes (ANXIETY, DEPRESSION) Seizures: No Thyroid Disease: No - Surgical History Abdominal Surgery: No Appendectomy: No Cardiac Surgery: No Cholecystectomy: No Lung Surgery: No Neurologic Surgery: No Orthopedic Surgery: No - Reproductive History Is Patient Now?: Yes (#): 2 Para: 0 PID: Yes Therapeutic (s) & number: Yes (1) Spontaneous : 0 - Immunization History Immunization Up to Date: Yes - Suicide/Smoking/Psychosocial Hx Smoking Status: Yes Smoking History: Never smoked Have you smoked in the past 12 months: No Number of Cigarettes Smoked Daily: 3 Information on smoking cessation initiated: No 'Breaking Loose' booklet given: 11/07/17 Hx Alcohol Use: No Drug/Substance Use Hx: No Substance Use Type: Alcohol Hx Substance Use Treatment: No *Physical Exam - Vital Signs Last Vital Signs Temp Pulse Resp BP Pulse Ox 98.6 F 105 H 16 120/65 97 04/09/18 02:08 04/09/18 02:08 04/09/18 02:08 04/09/18 02:08 04/09/18 02:08 Moderate Sedation - Procedure Monitoring Vital Signs: Procedure Monitoring Vital Signs Temperature 98.6 F 04/09/18 02:08 Pulse Rate 105 H 04/09/18 02:08 Respiratory Rate 16 04/09/18 02:08 Blood Pressure 120/65 04/09/18 02:08 O2 Sat by Pulse Oximetry (%) 97 04/09/18 02:08 ED Treatment Course - LABORATORY CBC & Chemistry Diagram: 04/09/18 03:55 04/09/18 03:55 - ADDITIONAL ORDERS Additional order review: Laboratory Results 04/09/18 03:55 Sodium 136 Potassium 3.8 Chloride 102 Carbon Dioxide 24 Anion Gap 10 BUN 9 Creatinine 0.6 Creat Clearance w eGFR > 60 Random Glucose 102 Calcium 9.2 Total Bilirubin 0.5 AST 25 ALT 20 Alkaline Phosphatase 72 Total Protein 7.8 Albumin 4.0 04/09/18 03:55 RBC 4.75 MCV 88.2 MCHC 34.4 RDW 13.1 MPV 8.9 Neutrophils % 83.6 H D Lymphocytes % 10.0 D Monocytes % 5.4 Eosinophils % 0.5 Basophils % 0.5 - Medications Given in the ED: ED Medications Discontinued Medications Generic Name Dose Route Start Last Admin Trade Name Freq PRN Reason Stop Dose Admin Famotidine/Sodium Chloride 20 mg in 50 mls @ 100 mls/hr 04/09/18 03:45 04:07 Pepcid 20 Mg Premixed Ivpb - IVPB 04/09/18 04:14 100 mls/hr ONCE ONE Administration Ondansetron HCl 4 mg 04/09/18 03:45 04/09/18 04:07 Zofran Injection IVPB 04/09/18 03:46 4 mg ONCE ONE Administration Sodium Chloride 1,000 ml 04/09/18 03:45 04/09/18 04:07 Normal Saline - IV 04/09/18 03:46 1,000 ml ONCE ONE Administration Medical Decision Making - Medical Decision Making 04/09/18 04:53 Patient is a 27-year-old female with history of sleep apnea, depression, anxiety complaining of nausea and vomiting 4 hours associated with generalized body ache. States she is 6 weeks 6 days she's been having cold symptoms 2 weeks. Flu shot was neg 2 weeks ago. Currently intolerant of solid or liquid. Denies fever, chills, dysuria. Nausea and vomiting in rule out viral syndrome versus hyperemesis labs, IVF, UA, zofran, pepcid, tylenol reassess. 04/09/18 06:32 Patient reassess still complains of nausea will give Zofran 4 mg IV and continue IV fluid of D5 normal saline. Labs reviewed noted to have WBCs on the urine given Rocephin 1 g IV. Endorsed to the EMT and in Rocephin for UTI and disposition *DC/Admit/Observation/Transfer Diagnosis at time of Disposition: Nausea & vomiting Qualifiers: Vomiting type: unspecified Vomiting Intractability: non-intractable Qualified Code(s): R11.2 - Nausea with vomiting, unspecified UTI in Qualifiers: Trimester: first trimester Qualified Code(s): O23.41 - Unspecified infection of urinary tract in , first trimester - Discharge Dispostion Condition at time of disposition: Fair - Referrals Referrals: Jose Raul Goldsmith MD [Primary Care Provider] - - Patient Instructions - Post Discharge Activity
[2018-04-09] MEDS ORDERED: ACETAMINOPHEN 500 MG TABLET (FP) PO ONE (04:59)
[2018-04-09] MEDS ORDERED: ACETAMINOPHEN 325 MG TABLET (FP) ONE (05:52)
[2018-04-09] MEDS ORDERED: DEXTROSE 5%-NORMAL SALINE 1,000 ML IV ONE (06:03)
[2018-04-09] MEDS ORDERED: ONDANSETRON 4 MG/2 ML VIAL IVPUSH ONE (06:04)
[2018-04-09 06:06] LABS: URINE APPEARANCE SLCLOUDY; URINE BILIRUBIN NEGATIVE (<2.0 mg/dL); URINE COLOR YELLOW; URINE GLUCOSE (UA) NEGATIVE (NEGATIVE); URINE KETONE 1+ (NEGATIVE); URINE LEUK ESTERASE 2+ (NEGATIVE); URINE NITRITE NEGATIVE (NEGATIVE); URINE PROTEIN NEGATIVE (NEGATIVE); URINE UROBILINOGEN NEGATIVE mg/dL (0.2-1.0)
[2018-04-09 06:13] LABS: EPI CELLS FEW /HPF (FEW); URINE BACTERIA RARE /hpf (NONE SEEN); URINE MUCUS RARE
[2018-04-09] MEDS ORDERED: CEFTRIAXONE 1,000 MG in DEXTROSE 5%-WATER - 50 ML IVPB ONE (06:30)
[2018-04-09] MEDS ORDERED: CEFTRIAXONE 1 GM/50 ML BAG ONE (07:01)
[2018-04-09] MEDS ORDERED: METOCLOPRAMIDE HCL INJECTION 10 MG/2 ML VIAL IVPB ONE (07:56)
[2018-04-09] MEDS ORDERED: RANITIDINE HCL 150 MG TABLET (FP) PO ONE (08:08)
--- NOTE | 2018-04-09 08:16 | PDOC ---
*Physical Exam - Vital Signs Last Vital Signs Temp Pulse Resp BP Pulse Ox 98.6 F 105 H 16 120/65 97 04/09/18 02:08 04/09/18 02:08 04/09/18 02:08 04/09/18 02:08 04/09/18 02:08 - Physical Exam General Appearance: Yes: Appropriately Dressed. No: Apparent Distress HEENT: positive: Normal Voice Neck: positive: Supple Respiratory/Chest: negative: Respiratory Distress Gastrointestinal/Abdominal: positive: Soft. negative: Tender Musculoskeletal: negative: CVA Tenderness Integumentary: positive: Dry, Warm Neurologic: positive: Fully Oriented, Alert, Normal Mood/Affect ED Treatment Course - LABORATORY CBC & Chemistry Diagram: 04/09/18 03:55 04/09/18 03:55 - ADDITIONAL ORDERS Additional order review: Laboratory Results 04/09/18 04/09/18 05:48 03:55 Sodium 136 Potassium 3.8 Chloride 102 Carbon Dioxide 24 Anion Gap 10 BUN 9 Creatinine 0.6 Creat Clearance w eGFR > 60 Random Glucose 102 Calcium 9.2 Total Bilirubin 0.5 AST 25 ALT 20 Alkaline Phosphatase 72 Total Protein 7.8 Albumin 4.0 Beta HCG, Quant 41067.4 Urine Color Yellow Urine Appearance Slcloudy Urine pH 5.0 Ur Specific Ermine 1.024 Urine Protein Negative Urine Glucose (UA) Negative Urine Ketones 1+ H Urine Blood Negative Urine Nitrite Negative Urine Bilirubin Negative Urine Urobilinogen Negative Ur Leukocyte Esterase 2+ H Urine WBC (Auto) 14 Urine RBC (Auto) 4 Ur Epithelial Cells Few Urine Bacteria Rare Urine Mucus Rare 04/09/18 03:55 RBC 4.75 MCV 88.2 MCHC 34.4 RDW 13.1 MPV 8.9 Neutrophils % 83.6 H D Lymphocytes % 10.0 D Monocytes % 5.4 Eosinophils % 0.5 Basophils % 0.5 - Medications Given in the ED: ED Medications Discontinued Medications Generic Name Dose Route Start Last Admin Trade Name Freq PRN Reason Stop Dose Admin Acetaminophen 975 mg 04/09/18 04:59 04/09/18 06:09 Tylenol - PO 04/09/18 05:00 975 mg ONCE ONE Administration Famotidine/Sodium Chloride 20 mg in 50 mls @ 100 mls/hr 04/09/18 03:45 04:07 Pepcid 20 Mg Premixed Ivpb - IVPB 04/09/18 04:14 100 mls/hr ONCE ONE Administration Dextrose/Sodium Chloride 1,000 mls @ 1,000 mls/hr 04/09/18 06:03 04/09/18 06: 22 D5-Ns - IV 04/09/18 07:02 1,000 mls/hr ONCE ONE Administration Ceftriaxone Sodium 1,000 mg/ 50 mls @ 100 mls/hr 04/09/18 06:30 04/09/18 07: 06 Dextrose IVPB 04/09/18 06:59 100 mls/hr ONCE ONE Administration Ondansetron HCl 4 mg 04/09/18 03:45 04/09/18 04:07 Zofran Injection IVPB 04/09/18 03:46 4 mg ONCE ONE Administration Ondansetron HCl 4 mg 04/09/18 06:04 04/09/18 06:23 Zofran Injection IVPUSH 04/09/18 06:05 4 mg ONCE ONE Administration Sodium Chloride 1,000 ml 04/09/18 03:45 04/09/18 04:07 Normal Saline - IV 04/09/18 03:46 1,000 ml ONCE ONE Administration Medical Decision Making - Medical Decision Making 04/09/18 08:15 Signed out to me at 7 AM She is a 27-year-old female, , about 6 weeks by dates w/ confirmed IUP on ultrasound 2 weeks ago per patient, here with intractable nausea, vomiting. Also reports some upper abdominal pain. No lower abdominal pain, vaginal bleeding or dysuria. Patient has since been given Zofran and IV fluids but continues to complain of nausea. Reglan and zantac in progress. Per prior team , pt also given ceftriaxone for possible uti. UA w/ 2+LE and 14 wbc. Pt denies dysuria. ucx sent 04/09/18 09:03 Patient reports feeling significant better after Reglan and able to po. Will dc with supportive treatment. Patient states she has an appointment with her OB in 1 week, but is but will call today to inquire about sooner follow-up *DC/Admit/Observation/Transfer Diagnosis at time of Disposition: Hyperemesis gravidarum - Discharge Dispostion Disposition: HOME Condition at time of disposition: Improved - Prescriptions Prescriptions: Metoclopramide HCl [Reglan] 10 mg PO Q8H #20 tablet Nitrofurantoin Monohyd/M-Cryst [Macrobid -] 100 mg PO BID #14 capsule - Referrals Referrals: Jose Raul Goldsmith MD [Primary Care Provider] - - Patient Instructions Printed Discharge Instructions: DI for Hyperemesis Gravidarum Additional Instructions: Eat small frequent meals throughout the day and drink plenty of fluids. Take Reglan as prescribed. You were started on antibiotics for possible urine infection Please follow up with your OB today - Post Discharge Activity Forms/Work/School Notes: Back to Work
[2018-04-09] MEDS ORDERED: RANITIDINE HCL 150 MG TABLET (FP) ONE (08:27)
[2018-04-09] MEDS ORDERED: METOCLOPRAMIDE HCL INJECTION 10 MG/2 ML VIAL ONE (08:27)
[2018-04-09 09:36] VITALS: BP 113/65; PULSE 104
== END 2018-04-09 09:36 | disposition home or self-care (01) ==
LOC: JER 02:08
PROC: 3E0337Z Introduction of Electrolytic and Water Balance Substance into Peripheral Vein, Percutaneous Approach (ICD-10-PCS; principal; 2018-04-09)
PROC: 3E03329 Introduction of Other Anti-infective into Peripheral Vein, Percutaneous Approach (ICD-10-PCS; 2018-04-09)
PROC: 3E033GC Introduction of Other Therapeutic Substance into Peripheral Vein, Percutaneous Approach (ICD-10-PCS; 2018-04-09)
PROC: 3E033GC Introduction of Other Therapeutic Substance into Peripheral Vein, Percutaneous Approach (ICD-10-PCS; 2018-04-09)
DX: O26.891 Other specified pregnancy related conditions, first trimester (principal); O21.0 Mild hyperemesis gravidarum; O23.41 Unspecified infection of urinary tract in pregnancy, first trimester; Z3A.01 Less than 8 weeks gestation of pregnancy
CPT/HCPCS: 36415; 80053; 81003; 81015; 84702; 85025; 87086; 99283-25

== ENCOUNTER 2018-05-03 11:31 | Emergency (ER) | payer BC ==
[2018-05-03 11:38] VITALS: BP 118/68; PULSE 109; TEMP 98.3; BMI 34.2
[2018-05-03] MEDS ORDERED: SODIUM CHLORIDE 1,000 ML IV SCH (12:15)
[2018-05-03] MEDS ORDERED: METOCLOPRAMIDE HCL INJECTION 10 MG/2 ML VIAL IVPUSH ONE (12:26)
--- NOTE | 2018-05-03 12:27 | PDOC ---
History of Present Illness - General Chief Complaint: Nausea/Vomiting Stated Complaint: Nausea//headache Time Seen by Provider: 05/03/18 11:55 - History of Present Illness Initial Comments: 05/03/18 11:58 27 year old woman w/a history of anxiety and depression who presents with 2 days of nausea, nbnb vomiting (approx 5x)and nonbloody diarrhea (4-5x). She denies any abdominal pain, fever, chest pain, shortness of breath, cramping, dysuria, hematuria. She does admit to some yellowing of her vaginal discharge but denies any cramping, malodor or vaginal pain or pressure. She has no other complaints at bedside. She last had an ultrasound 3 days ago with [facility] Dodson that was normal and showed a age of 10 weeks. At bedside she only complains of some nausea, headaches and body aches. She denies any recent travel , sick contacts, any one else with similar symptoms or eating new foods. LN 02/20/19 Past History - Past Medical History Allergies/Adverse Reactions: Allergies Allergy/AdvReac Type Severity Reaction Status Date / Time Sulfa (Sulfonamide Allergy Severe Rash Verified 05/03/18 11:34 Antibiotics) [Sulfa(Sulfonamide Antibiotics)] sulfamethoxazole Allergy Verified 05/03/18 11:34 [From Bactrim] trimethoprim [From Bactrim] Allergy Verified 05/03/18 11:34 Home Medications: Ambulatory Orders Clonazepam 0.5 mg PO PRN PRN 11/07/17 Escitalopram Oxalate [Lexapro -] 20 mg PO DAILY 11/07/17 Metoclopramide HCl [Reglan] 10 mg PO Q8H #20 tablet 04/09/18 Nitrofurantoin Monohyd/M-Cryst [Macrobid -] 100 mg PO BID #14 capsule 04/09/18 Anemia: Yes ( A CHILD) Asthma: No Cancer: No Cardiac Disorders: No CVA: No COPD: No CHF: No Dementia: No Diabetes: No GI Disorders: No Disorders: No HTN: No Hypercholesterolemia: No Liver Disease: No Psychiatric Problems: Yes (ANXIETY, DEPRESSION) Seizures: No Thyroid Disease: No - Surgical History Abdominal Surgery: No Appendectomy: No Cardiac Surgery: No Cholecystectomy: No Lung Surgery: No Neurologic Surgery: No Orthopedic Surgery: No - Reproductive History (#): 2 Para: 0 PID: Yes Therapeutic (s) & number: Yes (1) Spontaneous : 0 - Immunization History Immunization Up to Date: Yes - Suicide/Smoking/Psychosocial Hx Smoking Status: Yes Smoking History: Never smoked Have you smoked in the past 12 months: No Number of Cigarettes Smoked Daily: 3 Information on smoking cessation initiated: No 'Breaking Loose' booklet given: 11/07/17 Hx Alcohol Use: No Drug/Substance Use Hx: No Substance Use Type: Alcohol Hx Substance Use Treatment: No *Physical Exam - Vital Signs Last Vital Signs Temp Pulse Resp BP Pulse Ox 98.3 F 109 H 16 118/68 100 05/03/18 11:34 05/03/18 11:34 05/03/18 11:34 05/03/18 11:34 05/03/18 11:34 Moderate Sedation - Procedure Monitoring Vital Signs: Procedure Monitoring Vital Signs Temperature 98.3 F 05/03/18 11:34 Pulse Rate 109 H 05/03/18 11:34 Respiratory Rate 16 05/03/18 11:34 Blood Pressure 118/68 05/03/18 11:34 O2 Sat by Pulse Oximetry (%) 100 05/03/18 11:34 ED Treatment Course - LABORATORY CBC & Chemistry Diagram: 05/03/18 12:17 05/03/18 12:17 Medical Decision Making - Medical Decision Making 05/03/18 12:30 27 year old woman w/a history of anxiety and depression who presents with 2 days of nausea, nbnb vomiting (approx 5x)and nonbloody diarrhea (4-5x). She denies any abdominal pain, fever, chest pain, shortness of breath, cramping, dysuria, hematuria. She does admit to some yellowing of her vaginal discharge but denies any cramping, malodor or vaginal pain or pressure. She has no other complaints at bedside. She last had an ultrasound 3 days ago with [facility] Dodson that was normal and showed a age of 10 weeks. At bedside she only complains of some nausea and headaches. ED Course: consider gastroenteritis vs molar *DC/Admit/Observation/Transfer Diagnosis at time of Disposition: Gastroenteritis - Discharge Dispostion Disposition: HOME Condition at time of disposition: Stable Decision to Admit order: No - Referrals Referrals: Jose Raul Goldsmith MD [Primary Care Provider] - - Patient Instructions Printed Discharge Instructions: DI for Viral Gastroenteritis -- Adult Additional Instructions: You were seen in the ED for complaints of nausea, vomiting and diarrhea. In the ED you were evaluated with labwork and treated with fluids and anti- nausea medication There does not appear to be an acute need for immediate hospitalization. You are advised to follow up with your Primary Care Physician within 1 week. Please follow up with your OBGYN within 1 week. Return to the ED immediately if you experience worsening nausea, vomiting, diarrhea, constipation, vaginal discharge, vaginal bleeding, abdominal pain or fever. - Post Discharge Activity Forms/Work/School Notes: Back to Work
[2018-05-03] MEDS ORDERED: METOCLOPRAMIDE HCL INJECTION 10 MG/2 ML VIAL ONE (12:28)
[2018-05-03 12:30] LABS: BASO % 0.5 % (0-2.0); EOS % 1.6 % (0-4.5); HEMATOCRIT 36.3 % (32.4-45.2); HEMOGLOBIN 12.7 GM/dL (10.7-15.3); LYMPH % 28.4 % (8-40); MCH 30.5 pg (25.7-33.7); MCHC 35.1 g/dl (32.0-36.0); MEAN PLT VOLUME 8.4 fl (7.5-11.1); MONO % 6.7 % (3.8-10.2); NEUT % 62.8 % (42.8-82.8); PLATELET COUNT 353 K/MM3 (134-434); RBC 4.17 M/mm3 (3.60-5.2); RDW 13.6 % (11.6-15.6); WHITE BLOOD COUNT 6.9 K/mm3 (4.0-10.0)
[2018-05-03 13:20] LABS: ALBUMIN 3.6 g/dl (3.4-5.0); ALK PHOS 59 U/L (45-117); ANION GAP 9 MMOL/L (8-16); BILIRUBIN,TOTAL 0.3 mg/dL (0.2-1); BLOOD UREA NITROGEN 8 mg/dL (7-18); CALCIUM 8.8 mg/dL (8.5-10.1); CHLORIDE 103 mmol/L (98-107); CO2 25 mmol/L (21-32); CREATININE 0.6 mg/dL (0.55-1.3); GLUCOSE,RANDOM 99 mg/dL (74-106); POTASSIUM 3.7 mmol/L (3.5-5.1); SGOT/AST 10 U/L (15-37); SGPT/ALT 18 U/L (13-61); SODIUM 137 mmol/L (136-145); TOT PROT 6.9 g/dl (6.4-8.2)
--- NOTE | 2018-05-03 14:02 | PDOC ---
Attending Attestation - HPI HPI: 05/03/18 14:02 The patient is a 27 year old woman , with a significant past medical history of anxiety and depression who presents with 2 days of nausea, vomiting, diarrhea and headache. She reports about 5 episodes of NBNB emesis and about 5 episodes of NB diarrheas. She also reports some yellowing of her vaginal discharge. She has no other complaints at bedside. She reports her last ultrasound 3 days ago with [facility] Dodson that was normal and showed a age of [address] [facility] 02/20/19 The patient denies chest pain, shortness of breath, and dizziness. The patient denies fever, chills,and constipation. The patient denies dysuria, frequency, urgency and hematuria. Allergies: NKDA - Physicial Exam PE: 05/03/18 14:02 Vitals: Triage vital signs reviewed General Appearance: No acute distress, well nourished, well developed Head: Atraumatic Eyes: Pupils equal reactive round, extraocular movement intact Chest Wall: Nontender Cardiac: Regular rate and rhythm, no murmurs, no rubs, no gallops Lungs: Clear to auscultation bilateral, good air movement bilaterally Abdomen: Soft, nondistended, normal bowel sounds, nontender to palpation Extremities: Full range of motion to all extremities, no cyanosis, clubbing, or edema Skin: Warm and dry, no rashes or lesions, no rash, no petechiae Neuro: AOX3; Cranial Nerves 2-12 grossly intact, Strength intact to all extremities, Sensation intact to all extremities, gait normal Psych: Normal mood, normal affect - Medical Decision Making 05/03/18 14:03 Documentation prepared by Anna Bryson, acting as medical hospital sales for Babak Pillai MD, <Anna Bryson - Last Filed: 05/03/18 14:02> - Resident Resident Name: Ann Choi - ED Attending Attestation I have performed the following: I have examined & evaluated the patient, The case was reviewed & discussed with the resident, I agree w/resident's findings & plan, Exceptions are as noted - Medical Decision Making History and examination consistent with hyperemesis gravidarum Well-appearing no apparent distress Feels better after nausea medication Patient will follow up with her [employer] CONTROL CLERK this week. Find his, need follow-up and strict return instructions discussed with patient. <Babak Pillai - Last Filed: 05/03/18 16:48>
[2018-05-03 14:18] LABS: URINE APPEARANCE CLEAR; URINE BILIRUBIN NEGATIVE (<2.0 mg/dL); URINE COLOR LTYELLOW; URINE GLUCOSE (UA) NEGATIVE (NEGATIVE); URINE KETONE NEGATIVE (NEGATIVE); URINE LEUK ESTERASE TRACE (NEGATIVE); URINE NITRITE NEGATIVE (NEGATIVE); URINE PROTEIN NEGATIVE (NEGATIVE); URINE UROBILINOGEN NEGATIVE mg/dL (0.2-1.0)
[2018-05-03 14:27] LABS: EPI CELLS RARE /HPF (FEW); URINE MUCUS RARE
== END 2018-05-03 14:30 | disposition home or self-care (01) ==
LOC: JER 11:31
PROC: 3E033GC Introduction of Other Therapeutic Substance into Peripheral Vein, Percutaneous Approach (ICD-10-PCS; principal; 2018-05-03)
PROC: 3E033GC Introduction of Other Therapeutic Substance into Peripheral Vein, Percutaneous Approach (ICD-10-PCS; 2018-05-03)
DX: O26.891 Other specified pregnancy related conditions, first trimester (principal); O99.611 Diseases of the digestive system complicating pregnancy, first trimester; K92.89 Other specified diseases of the digestive system; K52.9 Noninfective gastroenteritis and colitis, unspecified; Z3A.10 10 weeks gestation of pregnancy
CPT/HCPCS: 36415; 80053; 81003; 81015; 84702; 85025; 87086; 87804; 99282-25; J7030

== ENCOUNTER 2021-01-06 16:20 | Emergency (ER) | payer BC ==
[2021-01-06 18:22] VITALS: BP 114/72; TEMP 98; BMI 37.8
[2021-01-06 18:49] VITALS: PULSE 99
== END 2021-01-06 21:08 | disposition home or self-care (01) ==
LOC: JERFT 16:20 → JER 16:20 → JERFT 21:08
DX: R49.0 Dysphonia (principal); J02.9 Acute pharyngitis, unspecified
CPT/HCPCS: 36415; 86308; 87070; 99283-25

== ENCOUNTER 2022-01-07 20:18 | Emergency (ER) | payer BC ==
[2022-01-07 20:26] VITALS: BMI 28.3
[2022-01-07] MEDS ORDERED: ALBUTEROL SO4 2.5/IPRATROPIUM 0.5 INH SOL 3 ML VIAL.NEB. NEB ONE ×2 (21:25→21:41)
[2022-01-07] MEDS ORDERED: KETOROLAC TROMETHAMINE 30 MG/1 ML VIAL IVPB ONE (21:25)
[2022-01-07] MEDS ORDERED: methylPREDNISolone NA SUCC 125 MG/2 ML VIAL IVPB ONE (21:26)
[2022-01-07] MEDS ORDERED: KETOROLAC TROMETHAMINE 30 MG/1 ML VIAL ONE (21:42)
[2022-01-07] MEDS ORDERED: methylPREDNISolone NA SUCC 125 MG/2 ML VIAL ONE (21:43)
[2022-01-07] MEDS ORDERED: CEFTRIAXONE 1 GM/50 ML BAG ONE (22:45)
[2022-01-07] MEDS ORDERED: AZITHROMYCIN IVPB 500 MG in DEXTROSE 5%-WATER - 250 ML IVPB ONE (23:08)
[2022-01-07 23:39] LABS: EOS % 3.3 % (0-4.5); HEMATOCRIT 36.6 % (32.4-45.2); HEMOGLOBIN 12.3 GM/dL (10.7-15.3); LYMPH % 12.8 % (8-40); MCH 29.1 pg (25.7-33.7); MCHC 33.5 g/dl (32.0-36.0); MEAN CELL VOLUME 86.8 fl (80-96); MEAN PLT VOLUME 8.3 fl (7.5-11.1); MONO % 4.3 % (3.8-10.2); NEUT % 78.6 % (42.8-82.8); PLATELET COUNT 298 10^3/uL (134-434); RBC 4.22 M/mm3 (3.60-5.2); RDW 14.6 % (11.6-15.6); WHITE BLOOD COUNT 6.4 K/mm3 (4.0-10.0)
[2022-01-07 23:42] LABS: THROAT:GRP A STREP NOT DETECTED (NOTDETECTED)
[2022-01-08 00:03] LABS: CALCIUM 8.6 mg/dL (8.5-10.1)
[2022-01-08 00:04] LABS: ALBUMIN 3.5 g/dl (3.4-5.0)
[2022-01-08 00:07] LABS: CREATININE 0.7 mg/dL (0.55-1.3)
[2022-01-08 00:09] LABS: BILIRUBIN,TOTAL 0.2 mg/dL (0.2-1)
[2022-01-08] MEDS ORDERED: AZITHROMYCIN IVPB 500 MG/250 ML BAG IVPB ONE (00:13)
[2022-01-08] MEDS ORDERED: DEXAMETHASONE LIQUID 0.5 MG/5 ML PO ONE (00:31)
[2022-01-08] MEDS ORDERED: AZITHROMYCIN IVPB 500 MG in DEXTROSE 5%-WATER - 250 ML IVPB ONE (00:32)
[2022-01-08 00:34] VITALS: BP 117/59; PULSE 98; RESP 20; TEMP 98.7
[2022-01-08] MEDS ORDERED: AZITHROMYCIN 500 MG TABLET PO ONE (00:43)
[2022-01-08] MEDS ORDERED: DEXAMETHASONE SOD PHOSPHATE 10 MG/1 ML VIAL ONE (00:46)
[2022-01-08] MEDS ORDERED: AZITHROMYCIN 250 MG TABLET ONE (00:47)
== END 2022-01-08 01:43 | disposition home or self-care (01) ==
LOC: JER 20:18
PROC: 3E03329 Introduction of Other Anti-infective into Peripheral Vein, Percutaneous Approach (ICD-10-PCS; principal; 2022-01-07)
PROC: 3E03329 Introduction of Other Anti-infective into Peripheral Vein, Percutaneous Approach (ICD-10-PCS; 2022-01-07)
PROC: 3E033GC Introduction of Other Therapeutic Substance into Peripheral Vein, Percutaneous Approach (ICD-10-PCS; 2022-01-07)
DX: R05.1 Acute cough (principal)
CPT/HCPCS: 0241U-QW; 36415; 71046-TC-FY; 80053; 85025; 87651; 93005; 93010; 99285-25

== ENCOUNTER 2023-07-16 10:24 | Emergency (ER) | payer BC ==
[2023-07-16 10:35] VITALS: BP 115/73; PULSE 92; RESP 18; TEMP 98.2; BMI 26.4
[2023-07-16] MEDS: CEPHALEXIN MONOHYDRATE 500 MG CAPSULE (UD) PO ONE (10:52)
[2023-07-16] MEDS ORDERED: CEPHALEXIN MONOHYDRATE 500 MG CAPSULE (UD) ONE (10:52)
[2023-07-16] MEDS: ACETAMINOPHEN 500 MG TABLET (FP) PO ONE (10:52)
[2023-07-16] MEDS ORDERED: ACETAMINOPHEN 500 MG TABLET (FP) ONE (10:53)
[2023-07-16] MEDS ORDERED: KETOROLAC TROMETHAMINE 30 MG/1 ML VIAL ONE (12:16)
[2023-07-16] MEDS: KETOROLAC TROMETHAMINE 30 MG/1 ML VIAL IM ONE (12:20)
== END 2023-07-16 14:12 | disposition home or self-care (01) ==
LOC: JERFT 10:24 → JER 10:24 → JERFT 14:12
PROC: 3E023GC Introduction of Other Therapeutic Substance into Muscle, Percutaneous Approach (ICD-10-PCS; principal; 2023-07-16)
DX: L03.012 Cellulitis of left finger (principal)
CPT/HCPCS: 73130-TC-LT-FY; 84703; 99284-25

== ENCOUNTER 2024-01-15 14:18 | Emergency (ER) | payer BC ==
[2024-01-15 15:01] VITALS: BP 116/78; PULSE 97; RESP 19; TEMP 97.9; BMI 28.7
[2024-01-15] MEDS ORDERED: ALPRAZolam 0.25 MG TABLET ONE (16:21)
[2024-01-15] MEDS: ALPRAZolam 0.25 MG TABLET PO ONE (16:30)
== END 2024-01-15 16:56 | disposition home or self-care (01) ==
LOC: JER 14:18
DX: R07.89 Other chest pain (principal); F41.1 Generalized anxiety disorder; R00.2 Palpitations
CPT/HCPCS: 93005; 93010; 99283-25